=== PATIENT | female | born 1990 | race Caucasian/White ===

== ENCOUNTER 2021-02-08 01:01 | Emergency (ER) | payer BC ==
[~2021-02-08] VITALS: Ht 162.6 cm; Wt 162.8 kg
[2021-02-08 01:20] VITALS: BP_SYST 157
[2021-02-08] MEDS ORDERED: DIPHENHYDRAMINE INJ 50 MG/ML VIAL IM ONE (02:15)
[2021-02-08] MEDS ORDERED: FAMOTIDINE 20 MG TABLET ONE (02:21)
[2021-02-08 02:30] VITALS: BP_SYST 142
[2021-02-08] MEDS ORDERED: FAMOTIDINE 20 MG TABLET PO ONE (02:30)
== END 2021-02-08 02:30 | disposition home or self-care (01) ==
LOC: SED 01:01
DX: L50.9 Urticaria, unspecified (principal); I10 Essential (primary) hypertension; E66.9 Obesity, unspecified
CPT/HCPCS: 96372; 99283; J1200

== ENCOUNTER 2022-07-04 18:18 | Emergency (ER) | payer BC, MEDICAID ==
[~2022-07-04] VITALS: Ht 165.1 cm; Wt 171.5 kg
[2022-07-04 18:31] VITALS: BP_SYST 163
--- NOTE | 2022-07-04 18:35 | NUR ---
Triaged pt and placed in waiting room until bed becomes available. Pt A&Ox4. Stable.
--- NOTE | 2022-07-04 19:43 | NUR ---
Patient to ER bed 5 to gown for evaluation. Side rails up. Report given to Savannah PHAN(ashley).
--- NOTE | 2022-07-04 20:15 | NUR ---
Patient presents from home with c/o constipation, hemorrhoids, abd pain due to constipation per pt. Patient reports pain /. Patient a/oX4, vss, ambulatory, resp even and unlabored. Patient denies any past med hx or meds at this time. NAD noted at this time.
--- NOTE | 2022-07-04 20:30 | NUR ---
ER MD Loomis at bedside
[2022-07-04] MEDS ORDERED: DOCUSATE SODIUM 100 MG CAPSULE PO ONE ×2 (20:45→21:40)
[2022-07-04] MEDS ORDERED: LACTULOSE 20 GM/30 ML UDC PO ONE (20:45)
[2022-07-04] MEDS ORDERED: POLYETHYLENE GLYCOL 3350, 17 GM/ POWD.PACK PO SCH (20:45)
--- NOTE | 2022-07-04 20:47 | NUR ---
Patient ambulating to xrays accompained by radiology.
--- NOTE | 2022-07-04 20:50 | NUR ---
House supervisior Marissa notified regard medication that is not in ER pyxis at this time. Per house sup Marissa she will be able to bring #1 capsule 100mg Colace and #1 pkl of 17gm of Miralax from floor to ER. ER MD Loomis notified.
--- NOTE | 2022-07-04 21:15 | NUR ---
Per ER MD Loomis; materials for digital removal of fecal impactation is set up at bedside.
[2022-07-04] MEDS ORDERED: POLYETHYLENE GLYCOL 3350, 17 GM/ POWD.PACK ONE (21:41)
[2022-07-04 22:09] LABS: BILIRUBIN,URINE NEGATIVE (NEGATIVE); BLOOD, URINE NEGATIVE (NEGATIVE); CLARITY/URINE SL CLOUDY (CLEAR); COLOR,URINE YELLOW (YELLOW); GLUCOSE,URINE NEGATIVE (NEGATIVE); KETONES,URINE NEGATIVE (NEGATIVE); LEUKOCYTE ESTERASE ,URINE NEGATIVE (NEGATIVE); NITRITE, URINE POSITIVE (NEGATIVE); PROTEIN URINE NEGATIVE (NEGATIVE); UROBILINOGEN,URINE 0.2 (0.2-1.0)
--- NOTE | 2022-07-04 22:10 | NUR ---
ER MD Loomis at bedside administering fleet enema and performing digital removal of fecal impactation; patient tolerating procedure well.
[2022-07-04] MEDS ORDERED: DOCU-144 PO (22:12)
[2022-07-04] MEDS ORDERED: POLY17PO4 PO (22:12)
[2022-07-04] MEDS ORDERED: FLEETMO RC (22:12)
--- NOTE | 2022-07-04 22:29 | NUR ---
Patient given written and verbal discharge instructions and verbalizes understanding. ER MD discussed with patient the results and treatment provided. Patient in stable condition. ID arm band removed. Rx of colace, miralax, and fleet mineral oil enema given. Patient educated on pain management and to follow up with PMD. Pain Scale 2/10. Opportunity for questions provided and answered. Medication side effect fact sheet provided. Patient A/Ox4,ambulatory, nontenderness to abd, resp even and unlabored. Nad noted at this time.
[2022-07-04 22:35] LABS: RBC,URINE NONE SEEN /HPF (0-3)
[2022-07-04 22:36] VITALS: BP_SYST 143
[2022-07-04 22:36] LABS: BACTERIA,URINE MANY /HPF (None Seen); MUCUS,URINE None Seen /LPF (None Seen)
[2022-07-04] MEDS ORDERED: NITR-85 PO (23:05)
[2022-07-04] MEDS ORDERED: FLUC200T PO (23:09)
== END 2022-07-04 22:36 | disposition home or self-care (01) ==
LOC: SED 18:18
DX: K59.00 Constipation, unspecified (principal); N39.0 Urinary tract infection, site not specified; R19.7 Diarrhea, unspecified; I10 Essential (primary) hypertension; F17.200 Nicotine dependence, unspecified, uncomplicated; F12.90 Cannabis use, unspecified, uncomplicated; Z88.0 Allergy status to penicillin; Z79.899 Other long term (current) drug therapy
CPT/HCPCS: 74018; 81000; 81025; 87086; 99284